=== PATIENT | female | born 1995 | race Caucasian/White ===

== ENCOUNTER 2024-11-22 13:38 | Outpatient (CLI) | payer OTHER, SELFPAY ==
--- NOTE | 2024-11-22 13:51 | US_ITS ---
WS: [id number] THYROID ULTRASOUND HISTORY: NEW ONSET HYPERTHYROIDSM COMPARISON: None available. Right lobe: 1.2 cm x 1.3 cm x 5.0 cm (w x ap x l). Volume: 3.7 cm3. Normal sized gland. Hypoechoic nodule in the anterior mid thyroid with increased vascularity measures 0.7 x 0.5 x 0.9 cm. Otherwise thyroid is normal. No echogenic foci. No adenopathy. Left lobe: 1.3 cm x 1.2 cm x 4.7 cm (w x ap x l). Volume: 3.5 cm3. Isoechoic nodule mid LEFT thyroid 0.6 x 0.5 x 0.8 cm. Isthmus: 0.2 cm. US/US thyroid [id number] IMPRESSION: 1. TI-RADS 2; bilateral thyroid nodules. No FNA or follow-up recommended as pe r TI-RADS criteria.
== END 2024-11-22 13:39 | disposition home or self-care (01) ==
LOC: RAD 13:40
PROVIDERS: PCP Nurse Practitioner; Visit Provider Nurse Practitioner
DX: E04.2 Nontoxic multinodular goiter (principal)
CPT/HCPCS: 76536

== ENCOUNTER 2024-12-06 12:43 | Outpatient (CLI) | payer OTHER, SELFPAY ==
--- NOTE | 2024-12-06 13:09 | MM_ITS ---
WS: [id number] BILATERAL 3D TOMOSYNTHESIS DIGITAL DIAGNOSTIC MAMMOGRAPHY WITH CAD CLINICAL INFORMATION: L BREAST MASS HISTORY: Palpable lump LEFT breast COMPARISON: Baseline TECHNIQUE: Bilateral CC, MLO, and ML views. FINDINGS: The breasts are composed of heterogeneous fibroglandular density, which can limit the detection of small underlying mass lesions. Palpable marker upper outer LEFT breast. Dense underlying parenchymal tissue. Ultrasound of this area is pending. RIGHT breast is unremarkable. ULTRASOUND BREAST LEFT TECHNIQUE: Ultrasound left breast focused area of concern. CLINICAL INFORMATION: L BREAST MASS FINDINGS: Ultrasound LEFT breast at the 4 o'clock position in the area of patient concern. Small underlying cystic lesion just deep to the skin. This is most compatible with a small cyst or sebaceous cyst. No visualized fistulous tract to the skin. This has a relatively simple appearance measuring 3 x 3.2 mm. Findings are benign. Dense underlying parenchymal tissue in the area of concern. MM/MM diag BI tomosynthesis [id number] IMPRESSION: BI-RADS 2 benign Recommend annual screening mammography age 38
== END 2024-12-06 12:44 | disposition home or self-care (01) ==
LOC: RAD 12:43
PROVIDERS: PCP Nurse Practitioner; Visit Provider Nurse Practitioner
DX: N60.02 Solitary cyst of left breast (principal)
CPT/HCPCS: 76642; 77062; G0279